=== PATIENT | male | born 1970 | race Caucasian/White ===

== ENCOUNTER 2016-12-27 11:16 | Inpatient (IN) | payer OTHER ==
[~2016-12-27] VITALS: Ht 177.8 cm; Wt 105.7 kg
[2016-12-27] MEDS ORDERED: PROZ10 PO (11:29)
[2016-12-27 11:32] LABS: BASOPHILS % (AUTO) 0.5 % (0.0-2.0); EOSINOPHILS % (AUTO) 3.7 % (1.0-6.0); HEMATOCRIT 44.9 % (41-53); LYMPHOCYTES # (AUTO) 3.1 K/uL (1.0-4.8); LYMPHOCYTES % (AUTO) 32.7 % (22.0-44.0); MEAN CORPUSCULAR HEMOGLOBIN 30.7 pg (26.0-34.0); MEAN CORPUSCULAR HGB CONC 33.4 G/dL (31.0-37.0); MEAN CORPUSCULAR VOLUME 92 fL (80-100); MONOCYTES # (AUTO) 0.8 K/uL (0.1-1.0); MONOCYTES % (AUTO) 8.5 % (2.0-9.0); NEUTROPHILS # (AUTO) 5.1 K/uL (1.8-7.7); NEUTROPHILS % (AUTO) 54.6 % (40.0-70.0); PLATELET COUNT (AUTO) 284 K/uL (150-450); RED BLOOD CELL COUNT(AUTO) 4.88 MIL/uL (4.50-5.90); RED CELL DISTRIBUTION WIDTH 13.6 % (11.5-14.5); WHITE BLOOD COUNT (AUTO) 9.4 K/uL (4.5-11.0)
[2016-12-27 11:42] LABS: ANION GAP 10 mmol/L (8-16); CALCIUM, TOTAL 9.1 mg/dL (8.8-10.5); CARBON DIOXIDE 27 mmol/L (22-29); CHLORIDE 103 mmol/L (98-107); CREATININE 0.76 mg/dL (0.60-1.30); GLOMERULAR FILTR. RATE CALC > 60 mL/min (>60); SODIUM SERUM 140 mmol/L (136-145); UREA NITROGEN, BLOOD 13 mg/dL (7-18)
[2016-12-27 11:48] LABS: ALANINE AMINOTRANSFERASE 30 U/L (12-78); ALBUMIN 3.9 g/dL (3.4-5.0); ASPARTATE AMINOTRANSFERASE 18 U/L (15-37); BILIRUBIN,TOTAL 0.4 mg/dL (0.1-1.0); TOTAL PROTEIN, SERUM 7.3 g/dL (6.4-8.2)
[2016-12-27] MEDS ORDERED: LORazepam 2 MG TABLET PO ONE (13:00)
[2016-12-27] MEDS ORDERED: OLANZapine 5 MG RAPDIS TABLET PO PRN (14:30)
[2016-12-27] MEDS ORDERED: ZOLPIDEM TARTRATE 10 MG TABLET PO PRN (14:30)
[2016-12-27 16:55] VITALS: BP 138/82
[2016-12-27] MEDS: OLANZapine 5 MG RAPDIS TABLET PO SCH (21:37)
[2016-12-28] MEDS ORDERED: INFLUENZA VIRUS VACCINE QVS 2017-18 (3YR+)/PF 60 MCG/0.5 ML SYRINGE IM ONE (02:30)
[2016-12-28 07:21] LABS: CHOL/HDL RATIO 2.9 (4.2-7.3)
[2016-12-28 08:47] VITALS: BP 134/94
[2016-12-28] MEDS: NICOTINE 21 MG/24 HOUR PATCH TD SCH (09:00)
[2016-12-28] MEDS: LORazepam 2 MG TABLET PO PRN ×2 (11:03→18:17)
[2016-12-28] MEDS: HALOPERIDOL 5 MG TABLET PO PRN (12:21)
[2016-12-28 18:05] VITALS: BP 136/90
[2016-12-28] MEDS: OLANZapine 5 MG RAPDIS TABLET PO SCH (20:11)
[2016-12-29 06:49] VITALS: BP 129/96
[2016-12-29 08:10] VITALS: BP 138/92
[2016-12-29] MEDS: NICOTINE 21 MG/24 HOUR PATCH TD SCH (09:00)
[2016-12-29] MEDS: LORazepam 2 MG TABLET PO PRN (09:13)
[2016-12-29] MEDS: HALOPERIDOL 5 MG TABLET PO PRN (10:22)
[2016-12-29 16:40] VITALS: BP 141/89
[2016-12-29] MEDS: OLANZapine 5 MG RAPDIS TABLET PO SCH (20:25)
[2016-12-30] MEDS: LORazepam 2 MG TABLET PO PRN (07:51)
[2016-12-30 08:17] VITALS: BP 141/78
[2016-12-30] MEDS: NICOTINE 21 MG/24 HOUR PATCH TD SCH (09:00)
[2016-12-30] MEDS ORDERED: OLAN5TAB40 PO (09:19)
== END 2016-12-30 10:45 | disposition home or self-care (01) | DRG 897 ==
LOC: EMS 11:17 → 3EX 14:31
PROVIDERS: ADMIT Psychiatry & Neurology Psychiatry; ATTEND Psychiatry & Neurology Child & Adolescent Psychiatry
DX: F19.959 Other psychoactive substance use, unspecified with psychoactive substance-induced psychotic disorder, unspecified (principal); F15.10 Other stimulant abuse, uncomplicated; F32.9 Major depressive disorder, single episode, unspecified; I10 Essential (primary) hypertension; K21.9 Gastro-esophageal reflux disease without esophagitis; F17.210 Nicotine dependence, cigarettes, uncomplicated; F41.9 Anxiety disorder, unspecified; Z82.49 Family history of ischemic heart disease and other diseases of the circulatory system; Z28.21 Immunization not carried out because of patient refusal; Z79.899 Other long term (current) drug therapy
CPT/HCPCS: 99285; 99406; G0480